=== PATIENT | female | born 2000 | race Caucasian/White ===

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

== ENCOUNTER → 2020-07-27 | Outpatient (CLI) | payer MEDICAID ==
[~2020-07-27] MED LIST: OMNIPAQUE 350 MG/ML, 100ML BOTTLE ONE
== END | disposition home or self-care (01) ==
LOC: CFH 12:51
PROVIDERS: ATTEND Family Medicine
DX: R10.31 Right lower quadrant pain (principal); R31.29 Other microscopic hematuria
CPT/HCPCS: 74177; Q9967